=== PATIENT | female | born 1990 | race Two or more races ===

== ENCOUNTER 2017-05-29 17:23 | Emergency (ER) | payer OTHER ==
[~2017-05-29] VITALS: Ht 157.5 cm; Wt 45.4 kg
--- NOTE | 2017-05-29 17:47 | Emergency Room Report ---
History of Present Illness General Chief Complaint: Lower Extremity Injury Source: Patient Present Illness HPI Patient reports injuring her right foot yesterday Missing a step and twisting her foot Patient was seen at an urgent care earlier today and has a note for referral to the ER denies any cuts or open wounds and eyes any ankle or knee pain Pain is fairly well localized to the lateral dorsal foot Describes the pain as 3 out of 10 worse with attempting to bear weight Allergies: Coded Allergies: No Known Allergies (Unverified , 05/29/17) Patient History Past Medical History: see triage record Pertinent Family History: none Last Menstrual Period: 05/18/17 Reviewed Nursing Documentation: PMH: Agreed; PSxH: Agreed Nursing Documentation-PMH Past Medical History: No Stated History Review of Systems All Other Systems: negative except mentioned in HPI Physical Exam Vital Signs Date Time Temp Pulse Resp B/P (MAP) Pulse Ox O2 Delivery O2 Flow Rate FiO2 05/29/17 17:29 98.2 115 18 121/77 97 Room Air 98.2 Sp02 EP Interpretation: reviewed, normal General Appearance: well appearing, no apparent distress Head: normocephalic, atraumatic Eyes: bilateral eye PERRL, bilateral eye EOMI Musculoskeletal: other - Ecchymosis and swelling to the lateral dorsal foot, tender on palpation, lateral malleolus or area nontender proximal knee and tib- fib nontender neurovascularly intact Neurologic: alert, oriented x3, responsive Skin: other - as above Procedures Splinting Splinting : Consent: Verbal Location: right foot Pre-Made Type: velcro Hand-Made Type: plaster Splint: poserior short Pre-Proc Neuro Vasc Exam: normal Post-Proc Neuro Vasc Exam: normal Patient Tolerated: Well Complications: None Medical Decision Making Diagnostic Impression: Primary Impression: Foot fracture, right ER Course Given the patient's presentation attempt was made to open the CD to view imaging however were unable to do so Patient had extensive is obtained here for further evaluation There is evidence of fifth metatarsal fracture Patient had splint applied as noted above This is a closed fracture without any signs of open wounds Patient remains neurovascularly intact was provided with podiatry referral from the ER and will also follow up closely with her primary physician Other X-Ray Diagnostic Results Other X-Ray Diagnostic Results : X-Ray ordered: right foot # of Views/Limited Vs Complete: 3 View Indication: Pain EP Interpretation: Yes Interpretation: no soft tissue swelling, other - Proximal fifth metatarsal fracture, mild displacement, no obvious foreign body Impression: Other - acute fracture Electronically Signed by: Gustavo Lee DO Last Vital Signs Date Time Temp Pulse Resp B/P (MAP) Pulse Ox O2 Delivery O2 Flow Rate FiO2 05/29/17 17:29 98.2 115 18 121/77 97 Room Air 98.2 Status: improved Disposition: HOME, SELF-CARE Condition: Improved Scripts Ibuprofen* (MOTRIN*) 600 Mg Tablet 600 MG ORAL Q8H PRN for For Pain, #20 TAB 0 Refills Prov: Gustavo Lee DO 05/29/17 Additional Instructions: Patient is provided with the discharge instructions notified to follow up with primary doctor in the next 2-3 days otherwise return to the er with any worsening symptoms. Please note that this report is being documented using [employer] technology. This can lead to erroneous entry secondary to incorrect interpretation by the dictating instrument. Gustavo Lee DO May 29, 2017 17:47
[2017-05-29] MEDS ORDERED: Tylenol #3 tab (300mg/30mg) ORAL ONE (18:15)
[2017-05-29] MEDS ORDERED: IBUPROFEN600 MG ORAL (18:33)
[2017-05-29 19:45] VITALS: BP 121/77
--- NOTE | 2017-05-30 17:15 | Diagnostic Imaging Report ---
Indication: Trauma with pain Technique: Right foot, 3 views Comparison: None. Findings: There is a transverse fracture of the base of the fifth metatarsal. The remainder the bones are intact. The joints are normal. Impression: Fracture of the base of the fifth metatarsal. ER notified by phone at 9:07 AM 05/30/2017.
== END 2017-05-29 19:45 | disposition home or self-care (01) ==
LOC: EMR 18:37
DX: S92.351A Displaced fracture of fifth metatarsal bone, right foot, initial encounter for closed fracture (principal); X50.1XXA Overexertion from prolonged static or awkward postures, initial encounter; Y92.9 Unspecified place or not applicable
CPT/HCPCS: 29515; 99283